=== PATIENT | male | born 1945 | race Caucasian/White ===

== ENCOUNTER 2021-01-06 12:17 | Emergency (ER) | payer MEDICARE, OTHER ==
[~2021-01-06] VITALS: Ht 175.3 cm; Wt 90.0 kg
[2021-01-06 12:17] VITALS: BP 134/67
[2021-01-06] MEDS ORDERED: MORPHINE SULFATE 4 MG/ML DISP.SYRIN. IM ONE (14:15)
--- NOTE | 2021-01-06 14:26 | PHYS DOC ---
Adult General Chief Complaint Chief Complaint: SKIN PROBLEM HPI HPI Patient is a 75-year-old male patient presenting to the ED today complaining of shingles pain on the left side of his neck, symptoms have been going on for 8 weeks. Patient states he has been following up with his PCP Dr. Cullen. He s tates his PCP had him on oxycodone and acyclovir which he states was taking the edge of the pain but not relieving the pain 100%. He states he went back to the PCP again who started him on gabapentin. He states the gabapentin did not relieve his pain. He states he went back to the PCP again and was started on tramadol. He states the tramadol is not relieving his pain either. Patient denies any fever. Describes the pain as shooting. He states he fears he will end up with nerve damage from shingles. Review of Systems Review of Systems Constitutional: Denies fever or chills [] Musculoskeletal: Denies back pain or joint pain [] Integument: Reports shingles pain Neurologic: Denies headache, focal weakness or sensory changes [] All other systems were reviewed and found to be within normal limits, except as documented in this note. Physical Exam Physical Exam Constitutional: Well developed, well nourished, no acute distress, non-toxic appearance. [] Skin: Warm, dry, left lateral neck with trace amount of redness. Back: No tenderness, no CVA tenderness. [] Extremities: No tenderness, no cyanosis, no clubbing, ROM intact, no edema. [] Neurologic: Alert and oriented X 3, normal motor function, normal sensory function, no focal deficits noted. [] Psychologic: Very conversational. Affect normal, judgement normal, mood normal. [] EKG EKG [] Radiology/Procedures Radiology/Procedures [] Heart Score C/O Chest Pain: N/A Risk Factors: Risk Factors: DM, Current or recent (<one month) smoker, HTN, HLP, family history of CAD, obesity. Risk Scores: Risk Factors: DM, Current or recent (<one month) smoker, HTN, HLP, family history of CAD, obesity. Course & Med Decision Making Course & Med Decision Making Pertinent Labs and Imaging studies reviewed. (See chart for details) This is a 75-year-old male patient who presents to the ED today complaining of shingles pain, was diagnosed with shingles 8 weeks ago and has been following up with his own PCP. Patient has already taken acyclovir and was on oxycodone for pain which he states did not work. He was also put on gabapentin which he reports was not effective, he was recently put on tramadol. I spoke to patient at length. Informed patient it is not unusual for people to have postherpatic neurelgia after shingles. Encouraged him to continue taking gabapentin, tramadol and gave him prescription for Medrol Dosepak and lidocaine patches Dragon Disclaimer Dragon Disclaimer This electronic medical record was generated, in whole or in part, using a voice recognition dictation system. Departure Departure: Impression: Primary Impression: Postherpetic neuralgia Disposition: HOME / SELF CARE / HOMELESS Condition: STABLE Referrals: PCP,BROOKE (PCP) MINDI CULLEN MD follow up in 1 week Patient Instructions: Postherpetic Neuralgia Additional Instructions: You were seen for shingles pain. Please continue following up with your primary care doctor. Continue taking tramadol. We will put you on a steroid, and lidocaine patches which you can cut and apply to the affected areas on the neck and face. Scripts Lidocaine/Menthol (Lidall 4%-1% Patch) 1 Each Adh..patch 1 EACH TP DAILY, #7 PATCH Prov: FRAN JOYNER APRN 01/06/21 Methylprednisolone (MEDROL) 4 Mg Tab.ds.pk 1 PKG PO UD, #1 PKG Prov: FRAN JOYNER APRN 01/06/21 FRAN JOYNER APRN January 06, 2021 14:26
[2021-01-06] MEDS ORDERED: METH4TAB2 PO (14:36)
[2021-01-06] MEDS ORDERED: LIDO1ADH10 TP (14:36)
[2021-01-06] MEDS ORDERED: MORPHINE SULFATE 4 MG/ML DISP.SYRIN. ONE (14:41)
== END 2021-01-06 14:47 | disposition home or self-care (01) ==
LOC: ER 12:17
DX: B02.29 Other postherpetic nervous system involvement (principal)
CPT/HCPCS: 96372; 99283; J2270